=== PATIENT | male | born 1985 | race Asian ===

== ENCOUNTER 2017-09-15 19:01 | Emergency (ER) | payer OTHER ==
[2017-09-15 19:14] VITALS: BP 117/61
--- NOTE | 2017-09-15 19:30 | UC ---
Upper Extremity HPI - HPI Summary HPI Summary: 31 year old male with 4th finger left digit pain after fall at 0700 on 09/14. No other pain. Pain /10 at this time. Significant swelling . Pain with movement. Did not hit head. Fell on street and tripped forward. No other concerns. - History of Current Complaint Chief Complaint: UCUpperExtremity Stated Complaint: FINGER INJURY Time Seen by Provider: 09/15/17 19:10 Hx Obtained From: Patient Onset/Duration: Sudden Onset Aggravating Factor(s): Movement Alleviating Factor(s): Nothing Associated Signs And Symptoms: Positive: Swelling, Redness - Allergies/Home Medications Allergies/Adverse Reactions: Allergies Allergy/AdvReac Type Severity Reaction Status Date / Time No Known Allergies Allergy Verified 09/15/17 19:11 Home Medications: Home Medications NK [No Home Medications Reported] 09/15/17 [History Confirmed 09/15/17] PMH/Surg Hx/FS Hx/Imm Hx Previously Healthy: Yes - Surgical History Surgical History: Yes Surgery Procedure, Year, and Place: cyst removed - Family History Known Family History: Negative: Cardiac Disease - Social History Occupation: Employed Full-time - [employer] Alcohol Use: Occasionally Substance Use Type: None Smoking Status (MU): Never Smoked Tobacco Review of Systems Musculoskeletal: Arthralgia, Decreased ROM - left 4th finger Is Patient Immunocompromised?: No All Other Systems Reviewed And Are Negative: Yes Physical Exam Triage Information Reviewed: Yes Appearance: Well-Appearing, No Pain Distress, Well-Nourished Vital Signs: Initial Vital Signs Temp 98 F 09/15/17 19:11 Pulse 87 09/15/17 19:11 Resp 17 09/15/17 19:11 BP 117/61 09/15/17 19:11 Pulse Ox 100 09/15/17 19:11 Vital Signs Reviewed: Yes Respiratory Exam: Normal Cardiovascular Exam: Normal Musculoskeletal: Positive: ROM Limited @ - left ring finger with some reduced ROM with flexion and extension d/t swelling. Neurological Exam: Normal Neurological: Positive: Other: - cap refill < 3 sec. peripheral pulses intact and brisk. Psychological Exam: Normal Skin: Positive: Other - left 4th digit with swelling, abrasion on the left palm that is superficial. no discharge. some redness. no streaking. Diagnostics - Laboratory Diagnostic Studies Completed/Ordered: IMPRESSION: PROBABLE MINIMALLY DISPLACED FRACTURE OF THE BASE OF THE MIDDLE PHALANX OF THE FOURTH. DIGIT Upper Extremity Course/Dx - Course Course Of Treatment: Xray -- IMPRESSION: PROBABLE MINIMALLY DISPLACED FRACTURE OF THE BASE OF THE MIDDLE PHALANX OF THE FOURTH. DIGIT. At 2019 I called patient -- told him of the findings and he will call Ortho tomorrow AM to be seen by ortho for follow up and keep the finger splint on until cleared by Ortho -- he understands and agree with plan - Differential Dx/Diagnosis Differential Diagnosis/HQI/PQRI: Fracture (Closed), Strain, Sprain Provider Diagnoses: Left Ring Finger sprain / posible fracture Discharge - Discharge Plan Condition: Good Disposition: HOME Patient Education Materials: Finger Sprain (ED) Referrals: No Primary Care Phys,NOPCP [Primary Care Provider] - Vanessa Jarvis MD [Medical Doctor] - If Needed (Ortho Referral if needed )
--- NOTE | 2017-09-15 20:12 | RAD ---
HISTORY: Left ring finger pain, status post fall COMPARISONS: None VIEWS: 3, Frontal, lateral, and oblique views of the fourth digit of the left hand FINDINGS: BONE DENSITY: Normal. BONES: On the oblique view, there is a small bone fragment along the radial (lateral) (aspect of the base of the middle phalanx. JOINTS: There is no arthropathy. ALIGNMENT: There is no dislocation. SOFT TISSUES: Unremarkable. OTHER FINDINGS: None. IMPRESSION: PROBABLE MINIMALLY DISPLACED FRACTURE OF THE BASE OF THE MIDDLE PHALANX OF THE FOURTH DIGIT
== END 2017-09-15 19:57 | disposition home or self-care (01) ==
LOC: UCEAST 19:01
DX: S63.615A Unspecified sprain of left ring finger, initial encounter (principal); W19.XXXA Unspecified fall, initial encounter; Y92.9 Unspecified place or not applicable
CPT/HCPCS: 73140; 99201; G0463